=== PATIENT | female | born 1965 | race Caucasian/White ===

== ENCOUNTER 2025-09-06 06:40 | Outpatient (REF) | payer BC, SELFPAY ==
--- OUTSIDE RECORDS SUMMARY | 2025-09-06 06:49 | XMS_ITS | Encounter Summary ---
Author Organization [facility] Address [address] [facility] [address] [place] [phone] Phone Care Team Providers Care Carbon Printer Name Role Phone Alise Saldana Primary Care Provider [phone]- [phone] Encounter Details Date Type Department Care Team (Late st Contact Info) Description 07/28/2024 Procedure Pass [facility], [address] [address] Social History Tobacco Use Types Packs/Day Years Used Date Smoking Tobacco: Never Smokeless Tobacco: Never Alcohol Use Standard Drinks/Week Comments Not Currently 0 (1 standard drink = 0.6 oz pur e alcohol) Child or Family Care Answer Date Record ed Do you have problems with on e of the following making it difficult for you to work, study, or receive health care? No 06/20/2024 Education Answer Date Recorded Are you interested in help w ith more adult education (for example, completing high school, GED, job training, learning the Italian language, technical skills, or developing parenting skills)? No 06/20/2024 Are you concerned about learning? Not on file 06/20/2024 No 06/20/2024 Yes 06/20/2024 Food Answer Date Recorded Within the past 6 months we worried whether our food would run out before we got money to buy more. Never True 06/20/2024 Within the past 6 months the food we bought just didn't last and we didn't have enough money to get more. Never True Residential Stability Answer Date Recor ded What is your housing situation today? I have rosangela sing 06/20/2024 How many times have you moved in the past 12 wed ths? One time 06/20/2024 Paying for Meds Answer Date Recorded Do you have trouble paying for medicines? No 06/20/2024 Paying Utility Bills Answer Date Record ed Do you have trouble paying your heating or elect ricity bill? No 06/20/2024 Transportation Answer Date Recorded Has the lack of transportati on kept you from medical appointments or from getting medications? No 06/20/2024 Digital Access Answer Date Recorded No 06/20/2024 Yes 06/20/2024 Do you have reliable internet access at home? Ye s 06/20/2024 Do you have a device (e.g., phone, tablet, computer) with a working camera? Yes 06/20/2024 Intimate Partner Violence Answer Date R ecorded Denied Basic Needs Not on file 06/20/2024 In the past 12 months have y ou been in a relationship with a person who hurts, threatens, or tries to control you? No 06/20/2024 Worried food would run out Not on file 06/20 In the past 12 months have y ou been in a relationship with a person who hurts, threatens, or tries to control you? No 06/20/2024 Comments Unknown Sex and Gender Information Value Date Recorded Sex Assigned at Not on file Legal Sex Female 2:24 PM EST Gender Identity Not on file Sexual Orientation Not on file documented as of this encounter Plan of Treatment Upcoming Encounters Date Type Department Care Team (Late st Contact Info) Description 12/10/2026 10:00 AM EST Office Visit [facility] [address] [place] [address] [place] [address] Alise Saldana [address] [place] [address], [address] [place] [address] [email or web address] documented as of this encounter Visit Diagnoses Not on filedocumented in this encounter Additional Health Concerns Assessment Noted Time PHQ-2 Depression Total Score: 0 06/20/20 24 9:40 AM EDT documented as of this encounter Care Teams Carbon Printer Relationship Specialty Start Date End Date Alise Saldana [address] [place] [address], [address] [place] [address] [email or web address] PCP - General Family Medicine 04/11/24 documented as of this encounter Additional Source Comments The information contained in this document represents components of the legal health record. It is not the complete legal health record.[facility]
--- OUTSIDE RECORDS SUMMARY | 2025-09-06 06:49 | XMS_ITS | Encounter Summary ---
Author Organization [facility] Address [address] [place] [address] [place] [address] Phone Care Team Providers Care Paste Up Artist Name Role Phone Alise Saldana Primary Care Provider [phone]- [phone] Encounter Details Date Type Department Care Team (Late st Contact Info) Description 08/30/2025 Orders Only [facility] [address] [place] [address] ProviderKaren MD [address] [place], [place] [id number] Social History Tobacco Use Types Packs/Day Years Used Date Smoking Tobacco: Never Smokeless Tobacco: Never Alcohol Use Standard Drinks/Week Comments Not Currently 0 (1 standard drink = 0.6 oz pur e alcohol) Child or Family Care Answer Date Record ed Do you have problems with on e of the following making it difficult for you to work, study, or receive health care? No 08/28/2025 Education Answer Date Recorded Are you interested in help w ith more adult education (for example, completing high school, GED, job training, learning the Swedish language, technical skills, or developing parenting skills)? No 08/28/2025 Are you concerned about learning? Not on file 08/28/2025 No 08/28/2025 Yes 08/28/2025 Food Answer Date Recorded Within the past 6 months we worried whether our food would run out before we got money to buy more. Never True 08/28/2025 Within the past 6 months the food we bought just didn't last and we didn't have enough money to get more. Never True Residential Stability Answer Date Recor ded What is your housing situation today? I have rosangela sing 08/28/2025 How many times have you move d in the past 12 months? Zero (I did not move) 08/28/2025 Paying for Meds Answer Date Recorded Do you have trouble paying for medicines? No 08/28/2025 Paying Utility Bills Answer Date Record ed Do you have trouble paying your heating or elect ricity bill? No 08/28/2025 Transportation Answer Date Recorded Has the lack of transportati on kept you from medical appointments or from getting medications? No 08/28/2025 Digital Access Answer Date Recorded No 08/28/2025 Yes 08/28/2025 Do you have reliable internet access at home? Ye s 08/28/2025 Do you have a device (e.g., phone, tablet, computer) with a working camera? Yes 08/28/2025 Intimate Partner Violence Answer Date R ecorded Denied Basic Needs Not on file 08/28/2025 In the past 12 months have y ou been in a relationship with a person who hurts, threatens, or tries to control you? No 08/28/2025 Worried food would run out Not on file 08/28 In the past 12 months have y ou been in a relationship with a person who hurts, threatens, or tries to control you? No 08/28/2025 Comments Unknown Sex and Gender Information Value Date Recorded Sex Assigned at Not on file Legal Sex Female 2:24 PM EST Gender Identity Not on file Sexual Orientation Not on file documented as of this encounter Plan of Treatment Upcoming Encounters Date Type Department Care Team (Late st Contact Info) Description 12/10/2026 10:00 AM EST Office Visit [facility] [place] [facility] [address] [place] [address] [place] [address] Alise Saldana [address], [address] [place] [address] [email or web address] documented as of this encounter Procedures Procedure Name Priority Date/Time Associated Diagnosis Comments AVELINA (EXACT SCIENCES) Routine 03/04/2022 9:32 AM EDT documented in this encounter Results * COLOGUASALMA (EXACT SCIENCES) (03/04/2022 9:32 AM EDT) Stool (Per Rectum) us Historical Provider MD BODY FLUIDS AND STOOLS OR DERABLES Final Result documented in this encounter Visit Diagnoses Not on filedocumented in this encounter Additional Health Concerns Assessment Noted Time PHQ-2 Depression Total Score: 0 08/28/20 25 1:39 PM EDT documented as of this encounter Care Teams Paste Up Artist Relationship Specialty Start Date End Date Alise Saldana [address] [place] [address], [address] [place] [address] [email or web address] PCP - General Family Medicine 04/11/24 documented as of this encounter Additional Source Comments The information contained in this document represents components of the legal health record. It is not the complete legal health record.[facility]
--- OUTSIDE RECORDS SUMMARY | 2025-09-06 06:50 | XMS_ITS | Encounter Summary ---
Author Organization [facility] Address [address] [place] [address] Phone Care Team Providers Care Supervisor Metal Fabricating Name Role Phone Alise Saldana Primary Care Provider [phone]- [phone] Encounter Details Date Type Department Care Team (Late st Contact Info) Description 08/23/2025 Orders Only [facility] [address] [place] [address] Alise Saldana [address] [facility] [place] [address] [email or web address] Annual physical exam Social History Tobacco Use Types Packs/Day Years [...] high school, GED, job training, learning the Jamaican language, technical skills, or developing parenting skills)? [...] your housing situation today? I have rosangela webster 06/20/2024 How many times have you moved in the past 12 mon ths? One time 06/20/2024 Paying for Meds [...] EST Office Visit [facility] [place] [facility] [address] [place] [address] Alise Saldana [address] [facility] [place] [address] [email or web address] documented as of this encounter Procedures Procedure Name Priority Date/Time Associated Diagnosis Comments VITAMIN B12 Routine 08/22/2025 1:44 PM EDT Annual physical exam FERRITIN Routine 08/22/2025 1:44 PM EDT Annual physical exam 25-OH VITAMIN D Routine 08/22/2025 1:44 PM EDT Annual physical exam HEMOGLOBIN A1C Routine 08/22/2025 1:44 PM EDT Annual physical exam IRON AND IRON BINDING CAPACITY Routine 08/22/2025 1:44 PM EDT Annual physical exam LIPID PANEL Routine 08/22/2025 1:44 PM EDT Annual physical exam COMPREHENSIVE METABOLIC PANEL Routine 08/22/2025 1:43 PM EDT Annual physical exam documented in this encounter Results * Vitamin B12 (08/22/2025 1:44 PM EDT) Blood [facility] LAB BLOOD ORDERABLES Final Result Performing Organization Address [facility]/ZIP Co de Phone Number [address] [address] * Ferritin (08/22/2025 1:44 PM EDT) Blood [facility] LAB BLOOD ORDERABLES Final Result Performing Organization Address [facility]/ZIP Co de Phone Number [address] [address] * 25-OH vitamin D (08/22/2025 1:44 PM EDT) Blood [facility] LAB BLOOD ORDERABLES Final Result [address] [address] * Hemoglobin A1c (08/22/2025 1:44 PM EDT) Blood [facility] LAB BLOOD ORDERABLES Final Result Performing Organization Address City/[facility] Co de Phone Number [address] [address] * Iron and iron binding capacity (08/22/2025 1:44 PM EDT) Blood [facility] [employer] [facility] BLOOD ORDERABLES Final Result Performing Organization Address [facility] Co de Phone Number [address] [address] * Lipid panel (08/22/2025 1:44 PM EDT) Blood [facility] [employer] LAB BLOOD ORDERABLES Final Result Performing Organization Address [facility] Co de Phone Number [address] [address] * Comprehensive metabolic panel (08/22/2025 1:43 PM EDT) Blood [facility]ise [employer] LAB BLOOD ORDERABLES Final Result Performing Organization Address [facility] de Phone Number [address] [address] documented in this encounter Visit Diagnoses Diagnosis Annual physical exam Routine general medical examination at a health care facility documented in this encounter Additional Health Concerns Assessment Noted Time PHQ-2 Depression Total Score: 0 06/20/20 24 9:40 AM EDT documented as of this encounter Care Teams Supervisor Metal Fabricating Relationship Specialty Start Date End Date Alise Saldana [address] [place] [address], [address] [place] [address] PCP - General Family Medicine 04/11/24 documented as of this encounter Additional Source Comments The information contained in this document represents components of the legal health record. It is not the complete legal health record.[facility]
--- OUTSIDE RECORDS SUMMARY | 2025-09-06 06:50 | XMS_ITS | Clinical Summary ---
Author Organization Formerly [facility] Address [address] [place] [address] Phone Care Team Providers Care Customer Success Manager Name Role Phone Alise Saldana Primary Care Provider [phone] Allergies Active Allergy Reactions Criticality Noted Date Comments Doxycycline Other (See Comments) Medium 09/05/2024 Nitrofurantoin Monohyd/M-Cryst Nausea Only Low 08/16 Sulfamethoxazole Headaches High 09/05/2024 Medications cyanocobalamin, vitamin B-12, 1000 MCG tablet Take 1,000 mcg by mouth daily. Active cholecalciferol (VITAMIN D3) 25 MCG (1,000 unit) tablet Take 1,000 Units by mouth daily. 25mcg 3 times a week- takes part of dropper Active omega-3 fatty acids-fish oil 340-1,000 mg Cap Take 1 capsule by mouth daily. Active therapeutic multivitamin tablet Take 1 tablet by mouth daily. Active Active Problems Problem Noted Date Diagnosed Date Abnormal mammogram 08/17/2024 Assessment & Plan (08/17/2024 1:02 PM EDT): Patient with an suspicious diagnostic mammogram of the L breast. Indeterminate left breast calcifications were seen and stereotactic biopsy was recommended. Patient has not yet scheduled as she is unsure if she will have an exorbitant copay for the procedure. Working with insurance and billing to figure this out. We discussed what to expect from the biopsy. I will be awaiting the pathology results to figure out next steps. Annual physical exam 06/20/2024 Assessment & Plan (08/28/2025 2:39 PM EDT): This is a 60 y.o. female who presents for a complete physical exam. Past medical history, surgical history, social history, family history and allergies reviewed and document in chart. -Blood pressure taken and reviewed. -General health screening appropriate for age reviewed -General nutrition recommendations reviewed: 5 servings of fruits and vegetables, adequate protein. -Exercise recommendations reviewed: 150 minutes of cardiovascular exercise weekly. At least two strength training sessions weekly for muscle mass and bone health. -Breast cancer screening discussed: Last mammogram: 07/2025. Result: BIRADS1. Any abnormal hx: no. Due in . -Colon cancer screening discussed: Last colonoscopy: Cologuard 3 years ago, no colonoscopy. Result: normal Any abnormal hx: no. Cologuard ordered. Likes to do FIT testing in the interim years. -Cervical cancer screening discussed: Last pap: This year through [facility]. Result: normal cotesting. Any abnormal hx: Unclear? Squamous cells but doctors weren't concerned my guess is ASCUS. Per patient, was told good for 5 years. Due in 2029. -Smoking cessation: NA -Lung Cancer Screening: NA -Abdominal Aortic Aneurysm: NA -Osteoporosis screening discussed: -Prediabetes and Type 2 Diabetes Screenin.4% -Hyperlipidemia screening for people: Good HDL and LDL -Cardiovascular disease prevention (statin): ASCVD score: 1.1% -STI screening: Declines -One lifetime HIV and Hep C test: Has had. -IPV screen: NA -PHQ2: 0, TRACI 7: 0 -ADLS: No limitations. -Immunizations reviewed: Due for tetanus, flu, shingles, PCV and COVID. Declines covid, flu, PCV is still considering shingles and tetanus. -Labs as ordered -Regular vision and dental exams recommended: UTD -Calcium with Vitamin D recommendations reviewed: 800 international units of vitamin D daily and 1200 mg elemental calcium in post menopausal women -Living will/MOLST/HCP: Paperwork provided. HCP is juan Ribera. -Annual physical exam recommended Assessment & Plan (06/20/2024 10:30 AM EDT): This is a 59 y.o. female who presents for a complete physical exam. Past medical history, surgical history, social history, family history and allergies reviewed and document in chart. -Blood pressure taken, no signs of hypertension. -General health screening appropriate for age reviewed -General nutrition recommendations reviewed: 5 servings of fruits and vegetables, adequate protein. -Exercise recommendations reviewed: 150 minutes of cardiovascular exercise weekly. At least two strength training sessions weekly for muscle mass and bone health. -Breast cancer screening discussed: Last mammogram: 2021. Result: normal. Any abnormal hx: no. Scheduled in [place] 06/26/2024. Will be due in 2024. -Colon cancer screening discussed: Last colonoscopy: Cologuard 2 years ago, no colonoscopy. Result: normal Any abnormal hx: no. Will do Cologuard next year. -Cervical cancer screening discussed: Last pap: 2023. Result: normal. Any abnormal hx: Unclear? Squamous cells but doctors weren't concerned . Will get reports. -Smoking cessation: NA -Lung Cancer Screening: NA -Abdominal Aortic Aneurysm: NA -Osteoporosis screening discussed: -Prediabetes and Type 2 Diabetes Screening: NA for age -Hyperlipidemia screening for people 35 - 70 with BMI >25: Good HDL and LDL -Cardiovascular disease prevention (statin): ASCVD score: 1.1% -STI screening: Declines -One lifetime HIV and Hep C test: Has had. -IPV screen: NA -PHQ2: 0 -Immunizations reviewed: Due for tetanus, shingles and COVID. Declines covid, is still considering shingles and tetanus. -Labs as ordered -Regular vision and dental exams recommended: UTD -Dermatology/sunscreen: Does not wear sunscreen due to chemicals, sees dermatology. -Calcium with Vitamin D recommendations reviewed: 800 international units of vitamin D daily and 1200 mg elemental calcium in post menopausal women -Annual physical exam recommended Family history of heart disease 06/20/2024 Assessment & Plan (06/20/2024 10:58 AM EDT): Patient's father had his first heart attack at 49 years old. Both her paternal grandparents from heart attacks. Recent blood work showed good HDL, mildly elevated LDL. Previously, had an omega test that showed she was low and at high risk . Previously saw a strategic partnership manager who recommended a visit every 10 years. Vegetarian diet 04/11/2024 Assessment & Plan (04/11/2024 1:22 PM EDT): Eats a strict vegetarian diet. Tries to avoid dairy as much as possible. Has had low zinc, B12, and vitamin D. Eats a [place] nut a few times a week. Has been struggling with omega fatty acids. Arachidonic acid was low on recent blood work. Takes a fish oil supplement but would like to stop. Vitamin D deficiency, unspecified 04/11/2024 Assessment & Plan (04/11/2024 1:23 PM EDT): Will check levels. Encounters Date Type Department Care Team Description 08/30/2025 Orders Only [address] [place] [address] ProviderKaren MD 08/29/[address] [place] [address] Nicole Meier RN Labs (Lab request for omega 3 evaluation, available at external laboratory - difficulty identifying the appropriate orders to have this done) 08/28/2025 2:00 PM EDT Office Visit [address] [place] [address] Alise Saldana Annual physical exam; Colon cancer screening 08/23/2025 Orders Only [address] [place] [address] Alise Saldana Annual physical exam 08/13/2025 Orders Only [address] [place] [address] Alise Saldana 08/09/[address] [place] [address] Alise Saldana Request For Order(s) 06/06/[address] [place] [address] Alise Saldana 6 mth follow up mammogram from Last 3 Months Family History Medical History Relation Comments Hepatitis A Brother 1 No Known Problems Brother 2 CABG Father Heart attack Father x3 Hyperlipidemia Father Hypertension Father Breast cancer Maternal Cousin Diabetes type II Maternal Grandfather Skin cancer Maternal Grandmother Cervical cancer Mother Heart attack Paternal Grandfather Heart attack Paternal Grandmother Relation Status Comments Brother 1 Alive Brother 2 Alive Father Maternal Cousin Alive Maternal Grandfather Maternal Grandmother Mother Paternal Grandfather Paternal Grandmother Social History Tobacco Use Types Packs/Day Years [...] high school, GED, job training, learning the Divehi language, technical skills, or developing parenting skills)? [...] is your housing situation today? I have [email or web address] webster 08/28/2025 How many times have you move [...] on file Sexual Orientation Not on file Last Filed Vital Signs Vital Sign Reading Time Taken Comments Blood Pressure 122/64 08/28/2025 2:08 PM EDT Pulse 83 08/28/2025 2:08 PM EDT Temperature 36.8 C (98.2 F) 08/28/2025 2:08 PM EDT Respiratory Rate - - Oxygen Saturation 100% 08/28/2025 2:08 PM EDT Inhaled Oxygen Concentration - - Weight 65.5 kg (144 lb 6.4 oz) 08/28/2025 2:08 P M EDT Height 166.4 cm (5' 5.51 ) 08/28/2025 2:08 PM ED T Body Mass Index 23.66 08/28/2025 2:08 PM EDT Plan of Treatment Upcoming Encounters Date Type Department Care Team (Late st Contact Info) Description 12/10/2026 10:00 AM EST Office Visit [facility] [address] [place] [address] [place] [address] Alise Saldana [address] [facility], [address] [place] [address] [email or web address] Health Maintenance Due Date Last Done Comments Adult Td,Tdap Booster 1965 PAP SMEAR 01/27/1988 COLONOSCOPY 01/27/2012 FIT TEST 01/27/2012 FOBT 01/27/2012 SIGMOIDOSCOPY 01/27/2012 VIRTUAL COLONOSCOPY 01/27/2012 PNEUMOCOCCAL VACCINES (50+ years) (1 of 1 - PCV) 2017 ZOSTER VACCINES (1 of 2) 2017 COLOGUARD 03/04/2025 03/04/2022 COLORECTAL CANCER SCREENING 03/04/2025 INFLUENZA VACCINE (#1) 2026 Postp oned from 06/15/2025 (Patient Declines / Guardian Declines) COVID-19 VACCINE (1 - 2024- season) 2026 Postponed from 07/16/2025 (Patient Declines / Guardian Declines) DEPRESSION SCREENING 08/28/2026 08/28/2025 MAMMOGRAM 08/08/2027 08/08/2025, 07/17, 06/26/2024, Additional history exists LIPID PANEL 08/21/2030 08/21/2025, 05/2025, 08/21/2025 RSV VACCINE (1 - 1-dose 75+ series) 2042 HEPATITIS C SCREENING Completed 07/16/2020 HIV ONE-TIME SCREENING (18-65 YEARS) Completed 07/30/2020 SMOKING STATUS SCREENING (Once After 26 Yrs) Completed 08/28/2025 HEPATITIS A VACCINES Aged Out No long er eligible based on patient's age to complete this topic HIB VACCINES Aged Out No longer eligi ble based on patient's age to complete this topic MENINGOCOCCAL VACCINES (ACWY) Aged Out No longer eligible based on patient's age to complete this topic MENINGOCOCCAL VACCINES (B) Aged Out N o longer eligible based on patient's age to complete this topic Medical Devices Implanted Type Area Frame Opener Device Identifier Shelf Expiration Date Model / Serial / Lot Marker Biopsy 13mm Site [employer] For Eviva Ti Net Bioabsorbable Shape 1 Mini Cork Bx/10ea - [id number] Implanted:Qty: 1 on 10/03/2024 by Deidra Morales MD at [facility] Clip Left: Breast [employer] SMARK-EVIV A-13 / / [id number] Description:Titanium top hat liner placed Procedures Procedure Name Priority Date/Time Associated Diagnosis [...] 08/22/2025 1:43 PM EDT Annual physical exam OUTSIDE LDL Routine 08/21/2025 OUTSIDE TOTAL CHOLESTEROL Routine 08/21/2025 OUTSIDE HDL Routine 08/21/2025 OUTSIDE TRIGLYCERIDES Routine 08/21/2025 HM MAMMOGRAPHY Routine 06/26/2024 2:15 PM EDT OUTSIDE HIV Routine 07/30/2020 OUTSIDE HEPATITIS C VIRUS SCREENING Routine 07/16/2020 from Last 3 Months or Most Recently Relevant to Health Maintenance Results * Vitamin B12 (08/22/2025 1:44 PM EDT) [facility] BLOOD ORDERABLES Final Result Performing Organization Address City/[facility]/ZIP Co de Phone Number [address] [address] * Ferritin (08/22/2025 1:44 PM EDT) [facility] BLOOD ORDERABLES Final Result Performing Organization Address City/[facility]/ZIP Co de Phone Number [address] [address] * 25-OH vitamin D (08/22/2025 1:44 PM EDT) [facility] BLOOD ORDERABLES Final Result Performing Organization Address [facility] Co de Phone Number [address] [address] * Hemoglobin A1c (08/22/2025 1:44 PM EDT) [facility] BLOOD ORDERABLES Final Result Performing Organization Address [facility] Co de Phone Number [address] [address] * Iron and iron binding capacity (08/22/2025 1:44 PM EDT) [facility] BLOOD ORDERABLES Final Result Performing Organization Address [facility] Co de Phone Number [address] [address] * Lipid panel (08/22/2025 1:44 PM EDT) [facility] BLOOD ORDERABLES Final Result Performing Organization Address [facility] Co de Phone Number [address] [address] * Comprehensive metabolic panel (08/22/2025 1:43 PM EDT) [facility] BLOOD ORDERABLES Final Result Performing Organization Address [facility] Co de Phone Number [address] [address] * Outside Triglycerides (08/21/2025) Triglycerides - External 35 35 - 150 mg/dL Result [facility] Provider MD LAB BLOOD ORDERABLES Lisbeth l Result * Outside LDL (08/21/2025) LDL - External 125 50 - 250 mg/dL Result [facility] Provider MD LAB BLOOD ORDERABLES Lisbeth l Result * Outside Total Cholesterol (08/21/2025) Cholesterol, total - External 140 <=200 mg/dL Result [facility] Provider MD LAB BLOOD ORDERABLES Lisbeth l Result * Outside HDL (08/21/2025) Pathologist [facility] HDL - External 78 40 - 80 mg/dL Result [facility] Provider MD LAB BLOOD ORDERABLES Lisbeth l Result * OUTSIDE HIV TEST (07/30/2020) Pathologist [facility] HIV - External Neg Result [facility] Provider MD LAB BLOOD ORDERABLES Lisbeth l Result * Outside Hepatitis C Virus Screening (07/16/2020) Pathologist [facility] Hepatitis C Screening - External Neg Result [facility] Provider MD LAB BLOOD ORDERABLES Lisbeth l Result from Last 3 Months or Most Recently Relevant to Health Maintenance Insurance [place] [facility] PPO BLUE CROSS OUT OF STATE PPO [place]UE CROSS OUT OF STATE PPO BLUE CROSS OUT OF STATE PPO Advance Directives For more information, please contact: [phone] (9AM - 5PM Abigail/[facility], Wednesday-Wednesday) Documents on File Type Date Recorded Patient Supervisor Decorating Expl anation Healthcare Proxy 08/28/2025 HEALTH CARE PROXY SIGNED 08/28/25 Care Teams Customer Success Manager Relationship Specialty Start Date End Date Alise Saldana [address] [place] [address], [address] [place] [address] PCP - General Family Medicine 04/11/24 Additional Source Comments The information contained in this document represents components of the legal health record. It is not the complete legal health record.[facility]
--- OUTSIDE RECORDS SUMMARY | 2025-09-06 06:50 | XMS_ITS | Encounter Summary ---
Author Organization [facility] Address [address] [place] [address] Phone Care Team Providers Care Solid Waste Division Supervisor Name Role Phone Alise Saldana Primary Care Provider [phone] Encounter Details Date Type Department Care Team (Late st Contact Info) Description 08/13/2025 Orders Only [facility] Medicine [address] [place] [address] Alise Saldana [address] [facility] [place] [address] [email or web address] Social History Tobacco Use Types Packs/Day Years [...] high school, GED, job training, learning the Liber[place] language, technical skills, or developing parenting skills)? [...] EST Office Visit [facility] [facility] [address] [place] [address] [place] [address] Alise Saldana [address] [facility] [place] [address] [email or web address] documented as of this encounter Visit Diagnoses Not on filedocumented in this encounter Additional Health Concerns Assessment Noted Time PHQ-2 Depression Total Score: 0 06/20/20 9:40 AM EDT documented as of this encounter Care Teams Solid Waste Division Supervisor Relationship Specialty Start Date End Date Les Alise [address] [place] [address], [address] [place] [address] [email or web address] PCP - General Family Medicine 04/11/24 documented as of this encounter Additional Source Comments The information contained in this document represents components of the legal health record. It is not the complete legal health record.[facility]
--- OUTSIDE RECORDS SUMMARY | 2025-09-06 06:50 | XMS_ITS | Encounter Summary ---
Author Organization [facility] Address [address] [facility] [address] [place] [address] Phone Care Team Providers Care Juvenile Counselor Name Role Phone BernaAlise Dickinson Primary Care Provider [phone] Encounter Details Date Type Department Care Team (Late Contact Info) Description 05/01/[address] [place] [address] Trena Christian, RN [address] [place] [address] [email or web address] Social History Tobacco Use Types Packs/Day Years Used Date Smoking Tobacco: Never Smokeless Tobacco: Never Alcohol Use Standard Drinks/Week Comments Not Currently 0 (1 standard drink = 0.6 oz pur e alcohol) Education Answer Date Recorded Are you interested in more education? Not on lilly e 12/23/2023 Are you concerned about learning? Not on file 12/23/2023 No 12/23/2023 No 12/23/2023 Digital Access Answer Date Recorded No 12/23/2023 No 12/23/2023 Reliable internet access at home? Not on file 12/23/2023 Device with a working camera? Not on file Comments Unknown Sex and Gender Information Value Date Recorded Sex Assigned at Not on file Legal Sex Female 2:24 PM EST Gender Identity Not on file Sexual Orientation Not on file documented as of this encounter Plan of Treatment Upcoming Encounters Date Type Department Care Team (Late Contact Info) Description 12/10/2026 10:00 AM EST Office Visit [address] [place] [address] Alise Saldana [address] [place] [address], [address] [place] [address] .org documented as of this encounter Visit Diagnoses Not on filedocumented in this encounter Care Teams Juvenile Counselor Relationship Specialty Start Date End Date Alise Saldana [address] [place] [address], [address] [place] [address] [email or web address] PCP - General Family Medicine 04/11/24 documented as of this encounter Additional Source Comments The information contained in this document represents components of the legal health record. It is not the complete legal health record.[facility]
--- OUTSIDE RECORDS SUMMARY | 2025-09-06 06:50 | XMS_ITS | Encounter Summary ---
Author Organization [facility] Address [address] [facility] [address] [facility] [address] [place] [address] Phone Care Team Providers Care Steam Clothes Press Operator Name Role Phone Alise Saldana Primary Care Provider [phone] Reason for Visit * Reason Onset Date Comments Labs 08/29/2025 Lab request for omega 3 evaluation, available at external laboratory - difficulty identifying the appropriate orders to have this done Encounter Details Date Type Department Care Team (Late st Contact Info) Description 08/29/2025 Telephone [facility] [address] [address] Nicole Meier, RN [address] [place] [address] [email or web address] Labs (Lab request for omega 3 evaluation, available at external laboratory - difficulty identifying the appropriate orders to have this done) Social History Tobacco Use Types Packs/Day Years [...] high school, GED, job training, learning the Indian language, technical skills, or developing parenting skills)? [...] on file documented as of this encounter Progress Notes * Keila Valero MA - 09/05/2025 4:09 PM EDT Faxed labs to number provided * Ho Simpson - 09/05/2025 3:14 PM EDT Pt is calling to give the fax to [facility], please fax to [phone]. Contact and advise. Best callback number is [phone] Central Support Ice Plant Operator (Please do not reply to this user; this inbox is not monitored.) Thank you. * Bailey Rob - 09/05/2025 3:01 PM EDT Pt called in requesting this order be faxed to [facility] in [place]. Pt stated she would call the lab and obtain the fax number so that orders can be faxed. VALENTE Central Support Ice Plant Operator (Please do not reply to this user; this inbox is not monitored.) Thank you. * Nicoel Meier RN - 08/29/2025 9:04 AM EDT Patient needs Emmons fatty acids evaluated, requests order similar to one provided by external lab ([facility]). Provider is unable to order in [facility] with same specified fatty acids, [facility] has created their own lab test specifically for use with formula to calculate cardiac risk factor based on these values. Unable to locate/order Emmons 3, Emmons 6, DHA, EPA labs in any capacity. Full Fatty Acid profile pended, details regarding processing, routed to PCP to review/advise. documented in this encounter Plan of Treatment Upcoming Encounters Date Type Department Care Team (Late st Contact Info) Description 12/10/2026 10:00 AM EST Office Visit [facility] [address] [place] [address] Alise Saldana [address] [place] [address], [address] [place] [address] [email or web address] Scheduled Orders Name Type Priority Associated Diagnoses Orde r Schedule Fatty acid profile Lab Routine Family history of heart disease Expected: 08/30/2025, Expires: 11/30/2025 documented as of this encounter Visit Diagnoses Diagnosis Family history of heart disease- Primary Vitamin D deficiency, unspecified Vegetarian diet Other specified conditions influencing health status documented in this encounter Additional Health Concerns Assessment Noted Time PHQ-2 Depression Total Score: 0 08/28/20 25 1:39 PM EDT documented as of this encounter Care Teams Steam Clothes Press Operator Relationship Specialty Start Date End Date Alise Saldana [address] [place] [address], [address] [place] [address] [email or web address] PCP - General Family Medicine 04/11/24 documented as of this encounter Additional Source Comments The information contained in this document represents components of the legal health record. It is not the complete legal health record.[facility]
--- OUTSIDE RECORDS SUMMARY | 2025-09-06 06:50 | XMS_ITS | Clinical Summary ---
Author Organization [address] Address [address] [place] [address] Phone Care Team Providers Care Pipelines Manager Name Role Phone Alise Saldana MD Primary Care Provider + Encounters Date Type Department Care Team Description 08/08/2025 8:52 AM EDT - 08/08/2025 11:59 PM EDT Hospital Encounter Radiology Department - [address] [phone] Encounter for screening mammogram for malignant neoplasm of breast Discharge Disposition: Home or Self Care from Last 3 Months Surgical History Surgery Date Site/Laterality Comments STEREOTACTIC CORE BIOPSY Left 2023-benign Family History Medical History Relation Name Comments Breast cancer Cousin 1 maternal Breast cancer Cousin 2 maternal Breast cancer Cousin 3 maternal Breast cancer Other maternal-great aunt Relation Name Status Comments Cousin 1 maternal Cousin 2 maternal Alive Cousin 3 maternal Alive Other maternal-great aunt Social History Tobacco Use Types Packs/Day Years Used Date Smoking Tobacco: Never Assessed Comments No Sex and Gender Information Value Date Recorded Sex Assigned at Not on file Legal Sex Female 2:15 PM EST Gender Identity Not on file Sexual Orientation Not on file Obstetrics History Para Term AB IAB SAB Ectopic Multiple Livin g Live Births 0 0 0 0 Plan of Treatment Health Maintenance Due Date Last Done Comments Colorectal Cancer Screening: Colonoscopy 1967 DTaP,Tdap,and Td Vaccines (1 - Tdap) 1986 Hepatitis B Vaccines (1 of 3 - 19+ 3-dose series) 1986 Cervical Cancer Screening: P ap Smear 01/27/1988 Pneumococcal Vaccine: 50+ Ye ars (1 of 1 - PCV) 2017 Zoster Vaccines (1 of 2) 2017 Depression Screening 11/15/2024 HIV Screening 12/14/2024 Hepatitis C Screening 12/14/2024 Social Influencers of Health Screening 12/14/2024 COVID-19 Vaccine (1 - 2023-2 5 season) 2025 Influenza Vaccine (#1) 2025 Breast Cancer Screening 08/08/2027 08/08/2025 RSV Immunization Adult Patie nts (1 - 1-dose 75+ series) 2042 HIB Vaccines Aged Out No longer eligi ble based on patient's age to complete this topic HPV Vaccines Aged Out No longer eligi ble based on patient's age to complete this topic Hepatitis A Vaccines Aged Out No long er eligible based on patient's age to complete this topic IPV Vaccines Aged Out No longer eligi ble based on patient's age to complete this topic MMR Vaccines Aged Out No longer eligi ble based on patient's age to complete this topic Meningococcal ACWY Vaccine Aged Out N o longer eligible based on patient's age to complete this topic Meningococcal B Vaccine Aged Out No l onger eligible based on patient's age to complete this topic RSV Immunization Patients Un paulina 20 months Aged Out No longer eligible b ased on patient's age to complete this topic Varicella Vaccines Aged Out No longer eligible based on patient's age to complete this topic Procedures Procedure Name Priority Date/Time Associated Diagnosis Comments MG MAMMO DIGITAL SCREENING W MALACHI BILAT Routine 08/08/2025 9:17 AM EDT Encounter for screening mammogram for malignant neoplasm of breast from Last 3 Months Results * MG Mammo Digital Screening w Malachi bilat (08/08/2025 9:17 AM EDT) Anatomical Region Laterality Modality Breast Bilateral Mammography 08/22/2025 6:03 PM EDT Impressions 08/22/2025 6:05 PM EDT 1. No mammographic evidence of malignancy 2. Heterogeneous breast parenchyma BI-RADS CATEGORY: 2 - BENIGN RECOMMENDATION: Screening bilateral mammogram is recommended in 1 year. Mammo Location: [facility], [address] [place] [address], [id number], . -------- FINAL REPORT -------- Dictated By: Landy Moran Dictated Date: 08/22/2025 18:03 ET Assigned Physician: Landy Moran Reviewed and Electronically Signed By: Landy Moran Signed Date: 08/22/2025 18:05 ET Workstation ID: [id number] Transcribed By: Self Edit Transcribed Date: 08/22/2025 18:03 ET Narrative 08/22/2025 6:05 PM EDT A BILATERAL DIGITAL 3D SCREENING MAMMOGRAPHY HISTORY: Routine screening. Family history of breast cancer COMPARISON: Mammogram from 06/26/2024 Technique: Bilateral full field digital mammography (3D) was performed using standard CC and MLO projections , bilateral implant displaced views were performed CAD was used to evaluate this mammogram. FINDINGS: Right: No suspicious masses, groups of microcalcification or areas of architectural distortion identified. Stable typically benign parenchymal asymmetries. Intact implant. Left: No suspicious masses, groups of microcalcification or areas of architectural distortion identified. Stable typically benign parenchymal asymmetries. Lateral breast biopsy marker. Intact implant. BREAST DENSITY: C - The breasts are heterogeneously dense which may obscure small masses. Procedure Note Landy Moran MD - 08/22/2025 A BILATERAL DIGITAL 3D SCREENING MAMMOGRAPHY HISTORY: Routine screening. Family history of breast cancer COMPARISON: Mammogram from 06/26/2024 Technique: Bilateral full field digital mammography (3D) was performedusing standard CC and MLO projections , bilateral implant displaced viewswere performed CAD was used to evaluate this mammogram. FINDINGS: Right: No suspicious masses, groups of microcalcification or areas ofarchitectural distortion identified. Stable typically benign parenchymalasymmetries. Intact implant. Left: No suspicious masses, groups of microcalcification or areas ofarchitectural distortion identified. Stable typically benign parenchymalasymmetries. Lateral breast biopsy marker. Intact implant. BREAST DENSITY: C - The breasts are heterogeneously dense which mayobscure small masses. IMPRESSION: 1. No mammographic evidence of malignancy 2. Heterogeneous breast parenchyma BI-RADS CATEGORY: 2 - BENIGN RECOMMENDATION: Screening bilateral mammogram is recommended in 1 year. Mammo Location: [facility], [address] [place] [address], [id number], . -------- FINAL REPORT -------- Dictated By: Landy Moran Dictated Date: 08/22/2025 18:03 ET Assigned Physician: Landy Moran Reviewed and Electronically Signed By: Landy Moran Signed Date: 08/22/2025 18:05 ET Workstation ID: [id number] Transcribed By: Self Edit Transcribed Date: 08/22/2025 18:03 ET Alise Saldana MD IMG BI PROCEDURES Final Result from Last 3 Months Insurance [facility] Care Teams Pipelines Manager Relationship Specialty Start Date End Date Alise Saldana MD [address] [place] [address], [address] [place] [address] PCP - General Internal Medicine 08/08/25
== END 2025-09-06 06:41 | disposition home or self-care (01) ==
LOC: HO.HMGCLDS 06:40
PROVIDERS: PCP Student in an Organized Health Care Education/Training Program; Visit Provider Student in an Organized Health Care Education/Training Program
DX: Z82.49 Family history of ischemic heart disease and other diseases of the circulatory system (principal)
CPT/HCPCS: 36415; 82542; 82725

== ENCOUNTER 2025-10-23 10:51 | Outpatient (AMB) | payer BC, SELFPAY ==
--- NOTE | 2025-10-23 10:53 | A.OFFPC_ITS ---
Vital Signs 10/23/25 10:56 Height 5 ft 5.43 in Weight 145 lb BMI 23.8 BP 117/57 L Blood Pressure Location Rt brachial Position Sitting Respiration 16 Pulse 74 Pulse Source Pulse Oximeter Temp 97.5 F Temp Source Temporal Artery Scan Pulse Oximetry (%) 97 Oxygen Delivery Method Room Air Intake Visit Reasons: office visit , New Golf Course [employer]ic Required: No Accompanied by: Self / Same As Patient Allergies No Known Allergies Allergy (Verified 10/23/25 11:40) Medication List - Last Reconciled 10/23/25 by Sakina Wyatt PA-C No Known Home Meds Tobacco use date assessed: 10/23/25 Dental Screening Dental Screen Date: 10/23/25 Did you have a dental visit in the last 12 months?: Yes Did you have a dental problem in the last 6 months where you did not have access to dental care?: No Was dental information given to patient?: Patient has dentist HPI HPI Comments History of Present Illness Details History of Present Illness The patient is a 60 year old female presenting to [facility] with a new primary care provider. Her last physical exam was in August, at which time blood work was completed. She has no significant past medical history and takes no daily medications. Laboratory results from August showed a total cholesterol of 219 mg/dL and an LDL of 125 mg/dL. WBC count was on the lower side of normal, which has been her baseline. Her hemoglobin A1c was 5.4%, and vitamin D levels were normal, though she has increased her vitamin D supplementation since moving from [place]. The patient follows a vegetarian diet. Past surgical history includes a lithotripsy for kidney stones, which she believes were caused by Cipro. She reports resolving a subsequent kidney stone using an herb called [place]. For health screenings, her Cologuard was negative on 09/10/2025. Her last mammogram was in July or August of 2025, which showed heterogeneously dense breast parenchyma without evidence of malignancy. A biopsy of calcifications in her left breast last year was benign. She had a wrist bone scan at a [facility] which was reportedly above average. Dermatologically, she undergoes annual skin scans. Recently, a lesion on her left calf was treated with cryotherapy by a greige goods inspector in [place], [place]. She also has a tender area from a curling iron burn years ago, which was previously treated with cryotherapy but has recently become tender again. Social History - Housing: The patient recently moved [facility] to the area after living in [place], [place] for 30 years due to concerns about hurricanes and insurance costs. - Functional Status: The patient lives b y herself, is fully independent with all activities of daily living, and has not had any falls in the past year. - Diet: Follows a vegetarian diet. - Exercise: Reports constant lifting as part of her job at [employer]. Results - Labs (August 2025): - CBC: White blood cell count was on the lower side of normal, red blood cells and platelet count were normal. - CMP: Glucose, kidney function, and biju ctrolytes were normal. - Lipid Panel: Total cholesterol 219 mg/ dL, Triglycerides 99 mg/dL, LDL 125 mg/dL. - Hemoglobin A1c: 5.4%. - Vitamin D: Normal. - Vitamin B12: 868 pg/mL. - Iron studies: Normal. - Ferritin: Normal. - Imaging: - Mammogram (Aug 2025): Heterogeneo usly dense breast parenchyma, no evidence of malignancy. - Tests and Diagnostics: - Cologuard (09/10/2025): Negative. - [facility]. - Bone scan (wrist): Above average. [facility] Medical History (Updated 10/23/25 @ 11:42 by Sakina Wyatt PA-C) Healthcare maintenance Establishing care with new doctor, encounter for Skin lesions Heterogeneously dense tissue of both breasts on mammography History of mammogram (~08/08/25) Vegetarian Pure hypercholesterolemia, unspecified Hyperlipidemia LDL goal <100 Colon cancer screening (~09/10/25) Surgical History H/O lithotripsy Family History Father BP (high blood pressure) Heart disease High cholesterol Mother Cervical cancer Social History Housing: Apartment Alcohol intake: current Alcohol intake frequency: does not drink Patient Tobacco Use Status: Never used Tobacco Second Hand Smoke Exposure: Yes service: No Current occupational status: employed Cognitive needs: No Hearing needs: No Vision needs: Yes (rx glasses) Questionnaire PHQ-9 Over the last 2 weeks, how often have you been bothered by any of the following problems? 1. Little interest or pleasure in doing things: not at all 2. Feeling down, depressed, or hopeless: not at all 3. Trouble falling or staying asleep, or sleeping too much: not at all 4. Feeling tired or having little energy: not at all 5. Poor appetite or overeating: not at all 6. Feeling bad about yourself - or that you are a failure or have let yourself or your family down: not at all 7. Trouble concentrating on things, such as reading the newspaper or watching television: not at all 8. Moving or speaking so slowly that other people could have noticed. Or the opposite - being so fidgety or restless that you have been moving around a lot more than usual: not at all 9. Thoughts that you would be better off or of hurting yourself in some way: not at all Total score: 0 Depression Screening Interpretation: Negative Depression Screening Done: Yes 85921 - PHQ-9 Billing: Yes Source: Developed by Drs. Jalen Ramsey, Cris Wilcox, Louis Alexis and colleagues, with an educational jason from [employer]. Thrive Questionnaire Date Thrive assessed: 10/23/25 I am a: Patient What is your living situation today?: I have a steady place to live Within the past 12 months, did the food you bought not last and you didn't have the money to get more?: Never true Within the past 12 months, did you worry whether your food would run out before you got money to buy more?: Never true Do you have trouble paying for medicines?: No Do you have trouble getting transportation to medical appointments?: No Do you have trouble paying your heating and electricity bill?: No Do you have trouble taking care of your child, family member or friend?: No Do you have trouble with day-to-day activities such as bathing, preparing meals, shopping, managing finances, etc.?: No Are you currently unemployed and looking for a job?: No Are you interested in more education?: No Please select the resources that you would like help with: None THRIVE Score: 0 AUDIT C Alcohol Use Questionnaire (AUDIT-C) 1. How often do you have a drink containing alcohol?: Never 3. How often do you have six or more drinks on one occasion?: Never Total Score: 0 Score Reviewed/Action Taken: No TRACI-7 AMB Questionnaire TRACI-7 Date TRACI - 7 assessed: 10/23/25 Feeling nervous, anxious, or on edge: 0 = Not at all Not being able to stop or control worryin = Not at all Worrying too much about different things: 0 = Not at all Trouble relaxin = Not at all Being so restless that it is hard to sit still: 0 = Not at all Becoming easily annoyed or irritable: 0 = Not at all Feeling afraid as if something awful might happen: 0 = Not at all Total TRACI-7 score (0-4 normal; 5-9 mild; 10-14 moderate; 15-21 severe): 0 Source: Developed by Drs. Jalen Ramsey, Cris Wilcox, Louis Alexis and colleagues, with an educational jason from [employer]. TRACI-7 Assessment Billing TRACI-7 Assessment Tool: TRACI-7 Assessment 93743 Review of Systems Narrative Review of Systems - General: Denies unintentional weight loss. - Cardiovascular: Denies chest pain, shortness of breath, or palpitations with activity or lying flat. - GI: Denies melena or hematochezia. - : Reports normal urination. - Musculoskeletal: Denies calf tenderness. - Integumentary: Reports a tender spot where she previously had a burn, and notes a previous lesion on her left leg treated with cryotherapy. - Constitutional: Reports feeling well otherwise. Const All systems reviewed & are unremarkable except as noted in HPI and below Physical exam (Primary Care) Vital Signs: Last Vital Signs Temp 97.5 F 10/23/25 10:56 Pulse 74 10/23/25 10:56 Resp 16 10/23/25 10:56 BP 117/57 L 10/23/25 10:56 Pulse Ox 97 10/23/25 10:56 Oxygen Delivery Method Room Air 10/23/25 10:56 Care Plan Goal for BP management: <140/90 at Goal BMI result Body Mass Index 23.8 Normal BMI Tobacco/Smoking Status: Tobacco use Status Tobacco use date assessed 10/23/25 10/23/25 10:55 Patient Tobacco Use Status Never used Tobacco 10/23/25 11:05 PHQ-9: PHQ-9 Score PHQ-9: Total score 0 10/23/25 11:38 Depression Screening Interpretation: Negative Thrive Assessment: Date of Thrive Assessment Date Thrive assessed 10/23/25 10/23/25 10:55 Narrative Physical Exam Appearance: Alert. Oriented X3. No acute distress. Head: Normal external exam. Normocephalic. Atraumatic. Eyes: Conjunctiva and sclera normal. Eyelids normal. Throat: Pharynx normal. Uvula midline. Moist mucous membranes. Neck: Normal inspection. Neck supple. Full range of motion. Cardiovascular: Normal heart rate and rhythm. Respiratory: No respiratory distress. Painless inspiration. Back: Full range of motion noted. Skin: Skin warm and dry. Normal skin color. Extremities: Extremities exhibit normal range of motion. Office Procedures Flu Questionnaire Does the patient have a severe egg allergy?: No Does the patient have severe life threatening allergies?: No Does the patient have a fever or illness today?: No Has the patient ever had Guillain-Mears Syndrome?: No Has the patient ever had any past reaction to a flu shot?: No Immunizations Fluarix [id number] (PF) 45 mcg (15 mcg x 3)/0.5 mL IM syringe Performing Provider: Sakina Wyatt PA-C [facility] Documented (not given) by: WILLIE Tello on 10/23/25 11:05 Reason Not Given: Patient Refused Results Reviewed Results Reviewed: - Labs (August 2025): - CBC: White blood cell count was on the lower side of normal, red blood cells and platelet count were normal. - CMP: Glucose, kidney function, and electrolytes were normal. - Lipid Panel: Total cholesterol 219 mg/dL, Triglycerides 99 mg/dL, LDL 125 mg/dL. - Hemoglobin A1c: 5.4%. - Vitamin D: Normal. - Vitamin B12: 868 pg/mL. - Iron studies: Normal. - Ferritin: Normal. - Imaging: - Mammogram (Aug 2025): Heterogeneously dense breast parenchyma, no evidence of malignancy. - Tests and Diagnostics: - Cologuard (09/10/2025): Negative. - EKG (at [facility]): Normal. - Bone scan (wrist): Above average. Coding Level of Care Code New Pt Level 4 (24932) Complex visit Add On G2211 Diagnoses Establishing care with new doctor, encounter for Z76.89 Pure hypercholesterolemia, unspecified E78.00 Hyperlipidemia LDL goal <100 E78.5 Skin lesions L98.9 Healthcare maintenance Z00.00 Additional Codes TRACI-7 Assessment Billing - TRACI-7 Assessment Tool: TRACI-7 Assessment 58653 ([id number]) PHQ-9 - 50759 - PHQ-9 Billing: Yes ([id number]) Assessment & Plan Assessment & Plan (1) Establishing care with new doctor, encounter for: Code(s): Z76.89 - Persons encountering health services in other specified circumstances Category: Medical Plan: The patient is establishing care as a new patient. A review of her recent labs and health maintenance screenings was performed. She will follow up annually for her wellness visit. (2) Pure hypercholesterolemia, unspecified: Code(s): E78.00 - Pure hypercholesterolemia, unspecified Category: Medical Plan: The patient's total cholesterol is elevated at 219 mg/dL and LDL is 125 mg/dL. Dietary modifications, including reducing potato chip intake, were discussed as a natural approach to management. Information on managing cholesterol through diet will be provided. (3) Hyperlipidemia LDL goal <100: Code(s): E78.5 - Hyperlipidemia, unspecified Category: Medical Plan: The patient's total cholesterol is elevated at 219 mg/dL and LDL is 125 mg/dL. Dietary modifications, including reducing potato chip intake, were discussed as a natural approach to management. Information on managing cholesterol through diet will be provided. (4) Skin lesions: Code(s): L98.9 - Disorder of the skin and subcutaneous tissue, unspecified Category: Medical Plan: The patient reports a tender area where she sustained a curling iron burn years ago, which has become symptomatic again after previous cryotherapy. She also has a history of a treated lesion on her left calf. A referral will be placed for dermatology evaluation. The patient will identify a dermatology practice that is accepting new patients and notify the office to have the referral sent to the specific provider. Information for [facility] and [facility] was discussed as potential options. (5) Healthcare maintenance: Code(s): Z00.00 - Encounter for general adult medical examination without abnormal findings Category: Medical Plan: The patient is up to date on her colon cancer screening with a negative Cologuard. She is due for her annual screening mammogram. Bone density screening (DEXA scan) was discussed. While she has risk factors including postmenopausal status and a vegetarian diet, she does not meet other criteria for screening before age 65. A decision was made to defer the DEXA scan and revisit the discussion when she is 62 years old. It was recommended she take a multivitamin and continue her increased vitamin D intake. Plan Plan Patient was informed and verbally consented to the use of an ambient scribe for clinic note documentation during this visit. 1. Establishment Of Care The patient is establishing care as a new patient. A review of her recent labs and health maintenance screenings was performed. She will follow up annually for her wellness visit. 2. Hypercholesterolemia The patient's total cholesterol is elevated at 219 mg/dL and LDL is 125 mg/dL. Dietary modifications, including reducing potato chip intake, were discussed as a natural approach to management. Information on managing cholesterol through diet will be provided. 3. Skin Lesion The patient reports a tender area where she sustained a curling iron burn years ago, which has become symptomatic again after previous cryotherapy. She also has a history of a treated lesion on her left calf. A referral will be placed for dermatology evaluation. The patient will identify a dermatology practice that is accepting new patients and notify the office to have the referral sent to the specific provider. Information for [facility] and [facility] was discussed as potential options. 4. Health Maintenance The patient is up to date on her colon cancer screening with a negative Cologuard. She is due for her annual screening mammogram. Bone density screening (DEXA scan) was discussed. While she has risk factors including postmenopausal status and a vegetarian diet, she does not meet other criteria for screening before age 65. A decision was made to defer the DEXA scan and revisit the discussion when she is 62 years old. It was recommended she take a multivitamin and continue her increased vitamin D intake. Discussion Notes I reviewed the patient's recent lab work with her. I explained that her slightly low white blood cell count is not concerning as long as her other labs, particularly her platelet count, are normal, and we will continue to monitor it. We discussed her elevated cholesterol, and I recommended dietary changes, which she was agreeable to. I recommended she continue supplemental vitamin D. We discussed her recent negative Cologuard and her recent benign mammogram, and I advised her to continue with yearly mammograms. We reviewed the indications for a bone density scan, and she opted to wait and reconsider it when she turns 62. Regarding her tender skin lesion, I advised a dermatology evaluation, as it could be a recurrence or a new issue. I explained that she would need a referral and that she should find a practice accepting new patients and then call our office so we can direct the referral appropriately. I will provide a copy of the referral for her to take with her. The plan is for her to follow up in one year for her annual physical unless new issues arise. Orders: Orders Influenza [id number] Immunization Today Z23 - Encounter for immunization Referrals Dermatology Referral L98.9 - Disorder of the skin and subcutaneous tissue, unspecified Patient Instructions: Patient Instructions - Continue to take a multivitamin and supplemental Vitamin D. - Work on dietary changes to lower your cholesterol, such as reducing your intake of potato chips. - Schedule an appointment with a greige goods inspector for evaluation of your tender skin lesion. You will need to find a practice that is accepting new patients, and then call our office to let us know where to send the referral. - Schedule your next annual mammogram. - Follow up in one year for your next annual physical, or sooner if any issues arise.
[2025-10-23 10:56] VITALS: BP 117/57; PULSE 74; RESP 16; TEMP 36.4; O2SAT 97; BMI 23.8
== END 2025-10-23 11:35 | disposition home or self-care (01) ==
LOC: HO.HMCSH 10:51
PROVIDERS: PCP Physician Assistant Medical; Visit Provider Physician Assistant Medical
DX: Z76.89 Persons encountering health services in other specified circumstances (principal); E78.00 Pure hypercholesterolemia, unspecified; E78.5 Hyperlipidemia, unspecified; L98.9 Disorder of the skin and subcutaneous tissue, unspecified; Z00.00 Encounter for general adult medical examination without abnormal findings; Z23 Encounter for immunization

== ENCOUNTER → 2025-10-23 10:51 | Outpatient (BNVA) | payer BC, SELFPAY | PROVIDERS: PCP Physician Assistant Medical; Visit Provider Physician Assistant Medical | DX: Z00.00 Encounter for general adult medical examination without abnormal findings (principal); E78.00 Pure hypercholesterolemia, unspecified; E78.5 Hyperlipidemia, unspecified; L98.9 Disorder of the skin and subcutaneous tissue, unspecified; Z87.442 Personal history of urinary calculi; Z76.89 Persons encountering health services in other specified circumstances | CPT/HCPCS: 90471; 96127 ==